=== PATIENT | female | born 1930 | race Two or more races ===

== ENCOUNTER 2021-06-02 13:24 | Inpatient (IN) | payer OTHER ==
[~2021-06-02] VITALS: Ht 162.6 cm; Wt 77.1 kg
[2021-06-02] MEDS ORDERED: NITROGLYCERIN 0.4 MG SL TAB SL ONE (14:15)
[2021-06-02] MEDS ORDERED: ASPirin 81 mg TAB PO ONE ×2 (14:15→15:45)
[2021-06-02 14:45] LABS: Basophils # (auto) 0 10 ^3/uL (0-0.2); Basophils % (auto) 0.6 % (0.0-2.0); Eosinophils # (auto) 0 10 ^3/uL (0-0.8); Eosinophils % (auto) 0.4 % (0.0-7.0); Hematocrit 41.7 % (36.0-46.0); Hemoglobin 13.9 g/dL (12.2-16.2); Lymphocytes # (auto) 0.7 10 ^3/uL (0.4-5.4); Lymphocytes % (auto) 10.9 % (10.0-50.0); Mean Corpuscular Hemoglobin 30.4 pg (28.0-32.0); Mean Corpuscular Hgb Conc. 33.2 g/dL (32.0-36.0); Mean Corpuscular Volume 91.5 fL (80.0-100.0); Monocytes # (auto) 0.4 10 ^3/uL (0-1.3); Monocytes % (auto) 6.1 % (0.0-12.0); Neutrophils # (auto) 5.4 10 ^3/uL (1.6-8.6); Red Blood Cells 4.56 10^6/uL (4.0-5.20); Red Cell Distribution Width 14.5 % (11.8-14.3); White Blood Cell 6.6 10^3/uL (4.4-10.8)
[2021-06-02 15:03] LABS: Albumin 3.5 g/dL (3.4-5.0); Calcium 9.4 mg/dL (8.5-10.1); Magnesium 2.2 mg/dL (1.6-2.6); Potassium 4.3 mmol/L (3.5-5.1)
[2021-06-02 15:14] LABS: BUN/Creatinine Ratio 26.7; Bilirubin, Total 0.4 mg/dL (0.2-1.0); Total Protein 7.7 g/dL (6.4-8.2)
[2021-06-02] MEDS ORDERED: NITROGLYCERIN 0.4 MG SL TAB SL PRN (16:30)
[2021-06-02] MEDS ORDERED: MORPHINE SULFATE INJECTION 2 MG/ML SYRG IV PRN (16:30)
[2021-06-02] MEDS ORDERED: AZITHROMYCIN 500MG/ 250ML 250 ML IV ONE ×2 (18:30→19:00)
[2021-06-02] MEDS ORDERED: cefTRIAXone 1GM/50ML D5W 50 ML IV ONE ×2 (18:30→19:00)
[2021-06-02] MEDS ORDERED: LACTULOSE 20Gm/30ML SOLN PO PRN (19:00)
[2021-06-02] MEDS ORDERED: MECLIZINE HCL 25 MG TAB PO PRN (19:00)
[2021-06-02] MEDS ORDERED: hydrALAZINE HCL 20 MG/ML VL IV PRN (19:00)
[2021-06-02] MEDS ORDERED: LORazepam 0.5 MG TAB PO PRN (19:00)
[2021-06-02] MEDS ORDERED: MECLIZINE HCL 25 MG TAB PO ONE (19:00)
[2021-06-02] MEDS ORDERED: LACTATED RINGER'S 1,000 ML IV SCH (19:00)
[2021-06-02] MEDS ORDERED: LABETALOL HCL 5 MG/ML 4ML SYRINGE IV ONE (19:00)
[2021-06-02] MEDS ORDERED: FAMOTIDINE (10MG/ML) 2ML VL IV ONE (19:00)
[2021-06-02] MEDS ORDERED: DOCUSATE SOD 100 MG CAP PO PRN (19:00)
[2021-06-02] MEDS ORDERED: IPRATROPIUM BROM 0.5 MG/2.5ML INH SOL NEB ONE (19:00)
[2021-06-02] MEDS ORDERED: MONTELUKAST SODIUM 10 MG TAB PO ONE (19:00)
[2021-06-02] MEDS ORDERED: LABETALOL HCL 5 MG/ML 4ML SYRINGE IV PRN (19:00)
[2021-06-02] MEDS ORDERED: DEXTROSE (50%) 50ML SYRG IV PRN (19:00)
[2021-06-02] MEDS ORDERED: ONDANSETRON HCL 4 MG/2 ML VIAL IV PRN (19:00)
[2021-06-02] MEDS ORDERED: MULTIPLE VITAMINS W/ MINERALS TAB PO ONE (19:00)
[2021-06-02 20:08] LABS: Magnesium 1.9 mg/dL (1.6-2.6); Phosphorus 3.1 mg/dL (2.5-4.90)
[2021-06-02] MEDS ORDERED: IPRATROPIUM BROM 0.5 MG/2.5ML INH SOL ONE (21:09)
[2021-06-02] MEDS ORDERED: ACCU-CHEK COMFORT CURVE STRIP VI SCH (22:00)
[2021-06-02] MEDS ORDERED: ISOSORBIDE MONONITRATE 20 MG TAB PO SCH (22:00)
[2021-06-02] MEDS ORDERED: InsuLIN REG 1unit/0.01ml Soln (100units/ml) SC SCH (22:00)
[2021-06-02] MEDS ORDERED: PANTOPRAZOLE 40 MG/10 ML VIAL INJ IV SCH (22:00)
[2021-06-02] MEDS ORDERED: IPRATROPIUM BROM 0.5 MG/2.5ML INH SOL NEB SCH (22:00)
[2021-06-02] MEDS ORDERED: LABETALOL HCL 200 MG TAB PO SCH (22:00)
[2021-06-02] MEDS ORDERED: ATORVASTATIN 20 MG TAB PO SCH (22:00)
[2021-06-02] MEDS ORDERED: POTASSIUM CHL 20 Meq TABLET PO SCH (22:00)
[2021-06-02 22:30] VITALS: BP 144/34
[2021-06-03 02:41] VITALS: BP 107/52
[2021-06-03] MEDS ORDERED: FUROSEMIDE 20 MG/2 ML VIAL IV SCH (06:00)
[2021-06-03] MEDS ORDERED: InsuLIN REG 1unit/0.01ml Soln (100units/ml) SC SCH (07:00)
[2021-06-03] MEDS ORDERED: cefTRIAXone 1GM/50ML D5W 50 ML IV SCH (09:00)
[2021-06-03] MEDS ORDERED: ASPirin 81 mg TAB PO SCH (10:00)
[2021-06-03] MEDS ORDERED: AZITHROMYCIN 500MG/ 250ML 250 ML IV SCH (10:00)
[2021-06-03] MEDS ORDERED: BENAZEPRIL HCL 10 MG TAB PO SCH (10:00)
[2021-06-03] MEDS ORDERED: FAMOTIDINE (10MG/ML) 2ML VL IV SCH (10:00)
[2021-06-03] MEDS ORDERED: NIFEdipine ER 30 MG TAB PO SCH (10:00)
[2021-06-03] MEDS ORDERED: MULTIPLE VITAMINS W/ MINERALS TAB PO SCH (10:00)
[2021-06-03] MEDS ORDERED: ENOXAPARIN SOD 40 MG/0.4 ML SYRINGE SC SCH (10:00)
[2021-06-03] MEDS ORDERED: FLUoxetine HCL 20 MG CAP PO SCH (10:00)
[2021-06-03] MEDS ORDERED: MONTELUKAST SODIUM 10 MG TAB PO SCH (22:00)
== END 2021-06-03 03:10 | disposition short-term general hospital (02) | DRG 280 ==
LOC: EDBD 13:24 → ER 13:24 → OVERFLOW 16:18
PROVIDERS: ADMIT Hospitalist; ATTEND Internal Medicine
DX: I21.4 Non-ST elevation (NSTEMI) myocardial infarction (principal); I50.33 Acute on chronic diastolic (congestive) heart failure; J69.0 Pneumonitis due to inhalation of food and vomit; I16.1 Hypertensive emergency; K21.9 Gastro-esophageal reflux disease without esophagitis; I11.0 Hypertensive heart disease with heart failure; F41.9 Anxiety disorder, unspecified; F32.9 Major depressive disorder, single episode, unspecified; E66.01 Morbid (severe) obesity due to excess calories; K29.70 Gastritis, unspecified, without bleeding; Z20.822 Contact with and (suspected) exposure to COVID-19; E11.9 Type 2 diabetes mellitus without complications; E78.5 Hyperlipidemia, unspecified; J45.909 Unspecified asthma, uncomplicated; H91.90 Unspecified hearing loss, unspecified ear; Z68.29 Body mass index [BMI] 29.0-29.9, adult; Z79.4 Long term (current) use of insulin
CPT/HCPCS: 36415; 70450; 71045; 80053; 82962; 83605; 83735; 83880; 84100; 84443; 84484; 85025; 85379; 87040; 87426; 93005; 93886; 94640; 96365; 96366; 96368; 96375; 99291; C9113; G0378; J0696; J3490